=== PATIENT | male | born 1980 | race Caucasian/White ===

== ENCOUNTER 2022-12-12 16:21 | Emergency (ER) | payer SELFPAY ==
[~2022-12-12] VITALS: Ht 190.5 cm; Wt 81.6 kg
== END 2022-12-12 17:33 | disposition home or self-care (01) ==
LOC: ER 16:37
DX: M54.50 Low back pain, unspecified (principal); G89.29 Other chronic pain; R05.9 Cough, unspecified; R09.89 Other specified symptoms and signs involving the circulatory and respiratory systems
CPT/HCPCS: 99282